=== PATIENT | male | born 1990 | race Caucasian/White ===

== ENCOUNTER 2017-08-26 09:57 | Inpatient (IN) | payer BC, OTHER ==
--- NOTE | 2017-08-26 10:19 | PDOC ---
History of Present Illness <Nikki Myles - Last Filed: 08/26/17 18:49> - General History Source: Patient Exam Limitations: No Limitations - History of Present Illness Initial Comments: 08/26/17 10:16 18-year-old male history of Crohn's in somewhat of a remission for the last year here today complaining of epigastric pain. Patient states he has had intermittent pain over the last 2 weeks. Unrelated to food denies any fevers or chills no nausea no vomiting denies any change to stool states is regular pattern is every other day no recent increased number of stools. Patient thought maybe the pain was due to his Crohn's therefore he took a Humira injection which he had in is refrigerator from the year prior. No urinary complaints no other moderating factors Patient follows up with GI name Dr. Hedrick at [facility] 08/26/17 10:52 <Gayatri Beaver - Last Filed: 08/26/17 18:54> - General Chief Complaint: Pain Stated Complaint: abdominal pain Time Seen by Provider: 08/26/17 10:00 Past History <Nikki Myles - Last Filed: 08/26/17 18:49> - Past Medical History COPD: No GI Disorders: Yes (CROHN'S) Psychiatric Problems: Yes (anxiety,depression,ADHD) - Immunization History Immunization Up to Date: Yes - Suicide/Smoking/Psychosocial Hx Smoking Status: No Smoking History: Never smoked Number of Cigarettes Smoked Daily: 0 Hx Alcohol Use: No Drug/Substance Use Hx: No Substance Use Type: None <Gayatri Beaver - Last Filed: 08/26/17 18:54> - Past Medical History Allergies/Adverse Reactions: Allergies Allergy/AdvReac Type Severity Reaction Status Date / Time No Known Allergies Allergy Verified 08/26/17 10:03 Home Medications: Ambulatory Orders Aripiprazole [Abilify] 2 mg PO DAILY 05/23/12 Sertraline HCl [Zoloft] 75 mg PO DAILY 05/23/12 Lisdexamfetamine Dimesylate [Vyvanse] 40 mg PO DAILY 08/26/17 Review of Systems - Review of Systems Constitutional: No: Chills, Diaphoresis, Fever Respiratory: No: Orthopnea, Shortness of Breath Cardiac (ROS): No: Chest Pain, Edema ABD/GI: Yes: Abdominal cramping, Other (pain) : No: Burning, Dysuria Musculoskeletal: No: Back Pain Integumentary: No: Bruising Neurological: No: Headache All Other Systems: Reviewed and Negative <Gayatri Beaver - Last Filed: 08/26/17 18:54> *Physical Exam - Vital Signs Last Vital Signs Temp Pulse Resp BP Pulse Ox 100.9 F H 116 H 16 121/82 97 08/26/17 14:33 08/26/17 14:00 08/26/17 14:00 08/26/17 14:00 08/26/17 14:00 <Nikki Myles - Last Filed: 08/26/17 18:49> - Vital Signs Last Vital Signs Temp Pulse Resp BP Pulse Ox 99.4 F 130 H 18 124/84 96 08/26/17 09:58 08/26/17 09:58 08/26/17 09:58 08/26/17 09:58 08/26/17 09:58 - Physical Exam General Appearance: Yes: Appropriately Dressed HEENT: positive: Normal ENT Inspection Neck: positive: Trachea midline Respiratory/Chest: positive: Lungs Clear, Normal Breath Sounds Cardiovascular: positive: Regular Rhythm, Regular Rate (reg tachycardia ), S1, S2, Tachycardia Gastrointestinal/Abdominal: positive: Normal Bowel Sounds, Tender (epigastric ruq, and periumbilical ttp. ) Integumentary: negative: Normal Color, Dry, Warm <Gayatri Beaver - Last Filed: 08/26/17 18:54> Heart Score/ECG Review #1 General ECG Interpretation: Sinus Rhythm, Normal Intervals, No acute ischemic changes Compared to previous ECG there are: Other (sinus tachycardia. TWI III only) <Gayatri Beaver - Last Filed: 08/26/17 18:54> ED Treatment Course - LABORATORY CBC & Chemistry Diagram: 08/26/17 10:32 08/26/17 10:32 - ADDITIONAL ORDERS Additional order review: Laboratory Results 08/26/17 08/26/17 10:54 10:32 Sodium 137 Potassium 4.1 Chloride 101 Carbon Dioxide 29 H Anion Gap 7 L BUN 11 Creatinine 0.9 Creat Clearance w eGFR > 60 Random Glucose 100 Calcium 9.0 Total Bilirubin 1.0 AST 12 ALT 22 Alkaline Phosphatase 48 Total Protein 6.7 Albumin 3.5 Urine Color [place] Urine Appearance Cloudy Urine pH 5.5 Ur Specific Kenna >= 1.030 H Urine Protein 2+ H Urine Glucose (UA) Negative Urine Ketones 1+ H Urine Blood 2+ H Urine Nitrite Negative Urine Bilirubin 2+ H Urine Urobilinogen 0.2 Ur Leukocyte Esterase Negative Urine RBC 3-5 Urine WBC 0-3 Ur Epithelial Cells Few Amorphous Urates Moderate Urine Bacteria None seen 08/26/17 10:32 RBC 5.46 MCV 72.4 L MCHC 32.4 RDW 14.0 MPV 8.6 Neutrophils % 80.2 Lymphocytes % 7.4 L Monocytes % 11.5 H Eosinophils % 0.3 Basophils % 0.6 - Medications Given in the ED: ED Medications Discontinued Medications Generic Name Dose Route Start Last Admin Trade Name Freq PRN Reason Stop Dose Admin Piperacillin Sod/Tazobactam 50 mls @ 100 mls/hr 08/26/17 13:56 08/26/17 14:30 Sod 3.375 gm/ Dextrose IVPB 08/26/17 14:25 100 mls/hr ONCE ONE Administration Protocol Sodium Chloride 1,000 mls @ 1,000 mls/hr 08/26/17 14:02 08/26/17 14:30 Normal Saline - IV 08/26/17 15:01 1,000 mls/hr ASDIR STA Administration Sodium Chloride 1,000 ml 08/26/17 10:49 08/26/17 10:50 Normal Saline - IV 08/26/17 10:50 1,000 ml ONCE ONE Administration <Nikki Myles - Last Filed: 08/26/17 18:49> - LABORATORY CBC & Chemistry Diagram: 08/26/17 10:32 08/26/17 10:32 <Gayatri Beaver - Last Filed: 08/26/17 18:54> Medical Decision Making - Medical Decision Making Consulted with Dr. Sheth at 15:[address] Condon at 15:[address] Logan 16:35. Consulted with Dr. Sheth at 16:58. Consulted with Dr. Elia Treviño at 17:13. Consulted with Dr. Mckeon at 18:35. <Nikki Myles - Last Filed: 08/26/17 18:49> - Medical Decision Making 08/26/17 10:54 18-year-old male history of Crohn's here with abdominal pain which is periumbilical right sided no nausea no vomiting different from previous Crohn's flares On exam he's got right upper and periumbilical as well as suprapubic tenderness to palpation Differential includes UTI or pyelonephritis, pericarditis cholelithiasis or cholecystitis terminal ileal stricture secondary to Crohn's, pancreatitis, colitis flare patient's vital signs are noted for tachycardia at 130 and a low- grade fever. Plan: Bedside ultrasound to evaluate for gallstones, or cholecystitis cardiac ultrasound basic labs and lipase IV fluids Tylenol and possible CT 08/26/17 18:51 focused ED ultrasound RUQ Gallbladder scanned in two planes. no wall thickening, no stones, no pericholecystic fluid. CBD was normal at 2.5 mm anterior gallbladder wall was 1.8mm no sonographic murphys impression: normal gallbladder cardiac ultrasound: indication tachycardia, crohyns r/o pericardial effusion focused ED TTE, heart scanned in four views ( parasternal long and short, apical and subxiphoid) no pericardial effusion noted. overal preserved global contractility. impression: normal cardiac echo. ct a/p with microabscesses. d/w sheth surgery. <Gayatri Beaver - Last Filed: 08/26/17 18:54> *DC/Admit/Observation/Transfer - Attestations Scribe Attestion: Documentation prepared by Nikki Myles, acting as medical technologist blood bank for Gayatri Beaver MD. <Nikki Myles - Last Filed: 08/26/17 18:49> - Discharge Dispostion Admit: Yes <Gayatri Beaver - Last Filed: 08/26/17 18:54> Diagnosis at time of Disposition: Abdominal abscess - Discharge Dispostion Condition at time of disposition: Stable - Referrals Referrals: Kev Chavez MD [Staff Physician] - ()
[2017-08-26] MEDS ORDERED: SODIUM CHLORIDE 0.9% 1000 ML INFUS.BAG IV ONE (10:49)
[2017-08-26 10:52] LABS: BASO % 0.6 % (0-2.0); EOS % 0.3 % (0-4.5); HEMATOCRIT 39.5 % (35.4-49); HEMOGLOBIN 12.8 GM/dl (11.7-16.9); LYMPH % 7.4 % (8-40); MCH 23.4 pg (25.7-33.7); MCHC 32.4 g/dl (32.0-35.9); MEAN CELL VOLUME 72.4 fl (80-96); MEAN PLT VOLUME 8.6 fl (7.5-11.1); MONO % 11.5 % (3.8-10.2); NEUT % 80.2 % (42.8-82.8); PLATELET COUNT 395 K/MM3 (134-434); RBC 5.46 M/mm3 (4.00-5.60); WHITE BLOOD COUNT 11.8 K/mm3 (4.0-10.8)
[2017-08-26 10:58] LABS: ADD RBC MORPHOLOGY YES
[2017-08-26 11:12] LABS: ALBUMIN 3.5 g/dl (3.5-5.0); ALK PHOS 48 U/L (32-92); ANION GAP 7 (8-16); BLOOD UREA NITROGEN 11 mg/dl (7-18); CHLORIDE 101 mmol/L (98-107); CO2 29 mmol/L (22-28); CREATININE 0.9 mg/dl (0.6-1.3); GLUCOSE,RANDOM 100 mg/dl (74-106); POTASSIUM 4.1 mmol/L (3.5-5.1); SGOT/AST 12 U/L (10-42); SGPT/ALT 22 U/L (10-40); SODIUM 137 mmol/L (136-145); TOT PROT 6.7 g/dl (6.4-8.3)
[2017-08-26 11:18] LABS: PH,URINE 5.5 (4.5-8); URINE BILIRUBIN 2+ (NEGATIVE); URINE GLUCOSE (UA) Negative (NEGATIVE); URINE KETONE 1+ (NEGATIVE); URINE LEUK ESTERASE Negative (NEGATIVE); URINE NITRITE Negative (NEGATIVE); URINE UROBILINOGEN 0.2 (0.2-1.0)
[2017-08-26 11:32] LABS: EPI CELLS FEW /HPF; URINE APPEARANCE CLOUDY; URINE BLOOD 2+ (NEGATIVE); URINE COLOR YELL; URINE PROTEIN 2+ (NEGATIVE); URINE WBC 0-3 (0-2)
[2017-08-26 11:33] LABS: AMORP URATES MODERATE /hpf (NONE SEEN); URINE BACTERIA NONE SEEN /hpf (NEGATIVE)
[2017-08-26 13:51] LABS: ANISOCYTOSIS 1+
[2017-08-26] MEDS ORDERED: PIPERACILLIN/TAZOB 3.375 GM 3.375 GM in DEXTROSE 5%-WATER - 50 ML IVPB ONE (13:56)
[2017-08-26] MEDS ORDERED: SODIUM CHLORIDE 1,000 ML IV STA (14:02)
[2017-08-26] MEDS ORDERED: PIPERACILLIN/TAZOBACTAM 3.375 GM VIAL IVPB ONE ×2 (14:19→19:03)
[2017-08-26] MEDS ORDERED: morphine CARPU-JECT 2 MG/1 ML DISP.SYRIN IVPUSH PRN (15:15)
[2017-08-26] MEDS ORDERED: ONDANSETRON 4 MG/2 ML VIAL IVPUSH PRN (15:18)
--- NOTE | 2017-08-26 15:30 | CON.ID ---
Consult Consult Specialty:: infectious diseases Referred by:: Rylee Reason for Consultation:: crohns flare up - History of Present Illness Chief Complaint: abd pain History of Present Illness: 26 yr old male with hx of Chron's developed fever, abdominal pain .Patient has known history of crohns since last 8 years and his last flare up was about 4 yrs back. He was on Humira years ago but no longer. He does not take any meds currently. has been admitted for flair twice.Otherwise patient mentions that he has been doing well. CT found to have Chron's inflammation in small bowel with peritoneal abscess. surgery on case - History Source History Provided By: Patient, Family Member Limitations to Obtaining History: No Limitations - Alcohol/Substance Use Hx Alcohol Use: No - Smoking History Smoking history: Never smoked Aproximately how many cigarettes per day: 0 Home Medications - Allergies Allergies/Adverse Reactions: Allergies Allergy/AdvReac Type Severity Reaction Status Date / Time No Known Allergies Allergy Verified 08/26/17 10:03 - Home Medications Home Medications: Ambulatory Orders Aripiprazole [Abilify] 2 mg PO DAILY 05/23/12 Sertraline HCl [Zoloft] 75 mg PO DAILY 05/23/12 Lisdexamfetamine Dimesylate [Vyvanse] 40 mg PO DAILY 08/26/17 Review of Systems - Review of Systems Constitutional: reports: Fever Eyes: reports: No Symptoms HENT: reports: No Symptoms Neck: reports: No Symptoms Cardiovascular: reports: No Symptoms Respiratory: reports: No Symptoms Gastrointestinal: reports: Abdominal Pain Genitourinary: reports: No Symptoms Musculoskeletal: reports: No Symptoms Integumentary: reports: No Symptoms Neurological: reports: No Symptoms Endocrine: reports: No Symptoms Hematology/Lymphatic: reports: No Symptoms Psychiatric: reports: No Symptoms Physical Exam Vital Signs: Vital Signs Temperature 100.9 F H 08/26/17 14:33 Pulse Rate 116 H 08/26/17 14:00 Respiratory Rate 16 08/26/17 14:00 Blood Pressure 121/82 08/26/17 14:00 O2 Sat by Pulse Oximetry (%) 97 08/26/17 14:00 Constitutional: Yes: Well Nourished, Calm, Mild Distress Eyes: Yes: Conjunctiva Clear Cardiovascular: Yes: Regular Rate and Rhythm Respiratory: Yes: Regular, CTA Bilaterally Gastrointestinal: Yes: Normal Bowel Sounds, Soft, Tenderness (lower quadrant bilaterally) Musculoskeletal: Yes: WNL Extremities: Yes: WNL Neurological: Yes: Alert, Oriented Psychiatric: Yes: Alert, Oriented Labs: CBC, BMP 08/26/17 10:32 08/26/17 10:32 Imaging - Results Cat Scan: Report Reviewed, Image Reviewed Assessment/Plan Problem List - Problems (1) Abdominal pain, right lower quadrant Code(s): R10.31 - RIGHT LOWER QUADRANT PAIN (2) Ileitis, terminal Code(s): K50.00 - CROHN'S DISEASE OF SMALL INTESTINE WITHOUT COMPLICATIONS (3) Abdominal visceral abscess Code(s): K65.1 - PERITONEAL ABSCESS (4) Abdominal abscess Code(s): EPI6182 - patient with reacitvation of terminal ileitis starting to feel better still with some abd pain wbc normalized plan continue abx await for gi to see the patient bowel rest surgery on board hydration rest as per the team
[2017-08-26] MEDS: SODIUM CHLORIDE 1,000 ML IV SCH (15:36)
[2017-08-26] MEDS ORDERED: ACETAMINOPHEN 1000 MG/100 ML VIAL (NON FORMULARY) IVPB ONE (16:15)
--- NOTE | 2017-08-26 16:31 | CONSULT ---
Consult Consult Specialty:: Surgery Referred by:: Saranya Reason for Consultation:: Abdominal pain , Crohn's iliitis - History of Present Illness Chief Complaint: 26 year old man with h/o Crohn's disease , in remission for the past 4 years, comes to the Er c/o sudden onset of abdominal pain on his right side this morning , while he was driving. Denies any nausea or vomiting . No h/o fever , weight loss. No diarrhea, or constipation. - History Source History Provided By: Patient Limitations to Obtaining History: No Limitations - Alcohol/Substance Use Hx Alcohol Use: No - Smoking History Smoking history: Never smoked Aproximately how many cigarettes per day: 0 Home Medications - Allergies Allergies/Adverse Reactions: Allergies Allergy/AdvReac Type Severity Reaction Status Date / Time No Known Allergies Allergy Verified 08/26/17 10:03 - Home Medications Home Medications: Ambulatory Orders Aripiprazole [Abilify] 2 mg PO DAILY 05/23/12 Sertraline HCl [Zoloft] 75 mg PO DAILY 05/23/12 Lisdexamfetamine Dimesylate [Vyvanse] 40 mg PO DAILY 08/26/17 Physical Exam Vital Signs: Vital Signs Temperature 99.4 F 08/26/17 16:09 Pulse Rate 126 H 08/26/17 16:09 Respiratory Rate 18 08/26/17 16:09 Blood Pressure 121/82 08/26/17 14:00 O2 Sat by Pulse Oximetry (%) 99 08/26/17 16:09 Gastrointestinal: Yes: Other (Minimal tenderness in right lower quadrant, no guarding , no rigidity) Labs: CBC, BMP 08/26/17 10:32 08/26/17 10:32 Imaging - Results Cat Scan: Report Reviewed, Image Reviewed (Inflammatory changes in distal ilium with small fluid collections, suggestive of ? early abscess. Consistent with Crohns disease.) Problem List - Problems (1) Abdominal pain, right lower quadrant Code(s): R10.31 - RIGHT LOWER QUADRANT PAIN (2) Ileitis, terminal Code(s): K50.00 - CROHN'S DISEASE OF SMALL INTESTINE WITHOUT COMPLICATIONS (3) Abdominal visceral abscess Code(s): K65.1 - PERITONEAL ABSCESS (4) Abdominal abscess Code(s): [id number] - Assessment/Plan Reactivation of terminal ileitis, Crohns disease. Plan : Bowel rest , Iv fluids, G.I. consultation . NPO.
[2017-08-26] MEDS ORDERED: ACETAMINOPHEN INJECTION 100 ML IVPB ONE (16:33)
[2017-08-26] MEDS: PIPERACILLIN/TAZOB 3.375 GM 3.375 GM in DEXTROSE 5%-WATER - 50 ML IVPB SCH (19:05)
[2017-08-26 19:55] LABS: LIPASE 132 U/L (73-393)
[2017-08-26] MEDS: HEPARIN NA (PORCINE) 5,000 UNITS/ML 1ML VIAL SQ SCH (21:17)
--- NOTE | 2017-08-26 21:42 | HP ---
<Karina Guerrero - Last Filed: 08/26/17 21:37> CHIEF COMPLAINT:Diffuse abdominal pain with Chron's Flair PCP: Dr. Owusu, [facility] GI: Dr. Reyes, [facility] HISTORY OF PRESENT ILLNESS: This 26 yr old male with hx of Chron's developed fever, abdominal pain over the past 12 hours. He has had Chrons and last flair up was 4 years ago. He wsa on Humira years ago but no longer. He does not take any meds currently. He has never had surgery abdominally. But he has been hospitalized 2x for Chron's flair In ER the CT found to have Chron's inflammation in small bowel with peritoneal abscess. Pt was seen by Dr. Caballero, surgery and Dr. Cornejo, ID today. ER course was notable for: (1) low grade fever (2) (3) PAST MEDICAL HISTORY: chron's PAST SURGICAL HISTORY: none Social History:denies Smoking: Alcohol: Drugs: Family History: Allergies No Known Allergies Allergy (Verified 08/26/17 10:03) HOME MEDICATIONS: Home Medications Medication Instructions Recorded Aripiprazole [Abilify] 2 mg PO DAILY 05/23/12 Sertraline HCl [Zoloft] 75 mg PO DAILY 05/23/12 Lisdexamfetamine Dimesylate 40 mg PO DAILY 08/26/17 [Vyvanse] REVIEW OF SYSTEMS CONSTITUTIONAL: Absent: fever, chills, diaphoresis, generalized weakness, malaise, loss of appetite, weight change HEENT: Absent: rhinorrhea, nasal congestion, throat pain, throat swelling, difficulty swallowing, mouth swelling, ear pain, eye pain, visual changes CARDIOVASCULAR: Absent: chest pain, syncope, palpitations, irregular heart rate, lightheadedness , peripheral edema RESPIRATORY: Absent: cough, shortness of breath, dyspnea with exertion, orthopnea, wheezing, stridor, hemoptysis GASTROINTESTINAL: Absent: +abdominal pain,+ abdominal distension, nausea, vomiting, diarrhea, constipation, melena, hematochezia, Last BM yesterday GENITOURINARY: Absent: dysuria, frequency, urgency, hesitancy, hematuria, flank pain, genital pain MUSCULOSKELETAL: Absent: myalgia, arthralgia, joint swelling, back pain, neck pain SKIN: Absent: rash, itching, pallor HEMATOLOGIC/IMMUNOLOGIC: Absent: easy bleeding, easy bruising, lymphadenopathy, frequent infections ENDOCRINE: Absent: unexplained weight gain, unexplained weight loss, heat intolerance, cold intolerance NEUROLOGIC: Absent: headache, focal weakness or paresthesias, dizziness, unsteady gait, seizure, mental status changes, bladder or bowel incontinence PSYCHIATRIC: Absent: anxiety, depression, suicidal or homicidal ideation, hallucinations. PHYSICAL EXAMINATION Vital Signs - 24 hr 08/26/17 08/26/17 08/26/17 09:58 14:00 14:33 Temperature 99.4 F 99.7 F H 100.9 F H Pulse Rate 130 H Pulse Rate [ 116 H Apical] Respiratory 18 16 Rate Blood Pressure 124/84 Blood Pressure 121/82 [Arm] O2 Sat by Pulse 96 97 Oximetry (%) 08/26/17 08/26/17 16:09 17:34 Temperature 99.4 F Pulse Rate Pulse Rate [ 126 H 106 H Apical] Respiratory 18 16 Rate Blood Pressure Blood Pressure 130/84 [Arm] O2 Sat by Pulse 99 97 Oximetry (%) GENERAL: Awake, alert, and fully oriented, in no acute distress. HEAD: Normal with no signs of trauma. EYES: Pupils equal, round and reactive to light, extraocular movements intact, sclera anicteric, conjunctiva clear. No lid lag. EARS, NOSE, THROAT: Ears normal, nares patent, oropharynx clear without exudates. Moist mucous membranes. NECK: Normal range of motion, supple without lymphadenopathy, JVD, or masses. LUNGS: Breath sounds equal, clear to auscultation bilaterally. No wheezes, and no crackles. No accessory muscle use. HEART: Regular rate and rhythm, normal S1 and S2 without murmur, rub or gallop. ABDOMEN: Soft, +tender, + distended, normoactive bowel sounds, no guarding, no rebound, no masses. No hepatomegaly or splenomegaly. MUSCULOSKELETAL: Normal range of motion at all joints. No bony deformities or tenderness. No CVA tenderness. UPPER EXTREMITIES: 2+ pulses, warm, well-perfused. No cyanosis. No clubbing. No peripheral edema. LOWER EXTREMITIES: 2+ pulses, warm, well-perfused. No calf tenderness. No peripheral edema. NEUROLOGICAL: Cranial nerves II-XII intact. Normal speech. Normal gait. PSYCHIATRIC: Cooperative. Good eye contact. Appropriate mood and affect. SKIN: Warm, dry, normal turgor, no rashes or lesions noted, normal capillary refill. Laboratory Results - last 24 hr 08/26/17 08/26/17 08/26/17 10:32 10:32 10:54 WBC 11.8 H RBC 5.46 Hgb 12.8 Hct 39.5 MCV 72.4 L MCH 23.4 L MCHC 32.4 RDW 14.0 Plt Count 395 MPV 8.6 Neutrophils % 80.2 Lymphocytes % 7.4 L Monocytes % 11.5 H Eosinophils % 0.3 Basophils % 0.6 Polychromasia 1+ Poikilocytosis 1+ Anisocytosis 1+ Microcytosis 1+ Sodium 137 Potassium 4.1 Chloride 101 Carbon Dioxide 29 H Anion Gap 7 L BUN 11 Creatinine 0.9 Creat Clearance w eGFR > 60 Random Glucose 100 Lactic Acid Calcium 9.0 Total Bilirubin 1.0 AST 12 ALT 22 Alkaline Phosphatase 48 Total Protein 6.7 Albumin 3.5 Lipase 132 Urine Color [place] Urine Appearance Cloudy Urine pH 5.5 Ur Specific [place] >= 1.030 H Urine Protein 2+ H Urine Glucose (UA) Negative Urine Ketones 1+ H Urine Blood 2+ H Urine Nitrite Negative Urine Bilirubin 2+ H Urine Urobilinogen 0.2 Ur Leukocyte Esterase Negative Urine RBC 3-5 Urine WBC 0-3 Ur Epithelial Cells Few Amorphous Urates Moderate Urine Bacteria None seen 08/26/17 14:16 WBC RBC Hgb Hct MCV MCH MCHC RDW Plt Count MPV Neutrophils % Lymphocytes % Monocytes % Eosinophils % Basophils % Polychromasia Poikilocytosis Anisocytosis Microcytosis Sodium Potassium Chloride Carbon Dioxide Anion Gap BUN Creatinine Creat Clearance w eGFR Random Glucose Lactic Acid 0.8 Calcium Total Bilirubin AST ALT Alkaline Phosphatase Total Protein Albumin Lipase Urine Color Urine Appearance Urine pH Ur Specific [place] Urine Protein Urine Glucose (UA) Urine Ketones Urine Blood Urine Nitrite Urine Bilirubin Urine Urobilinogen Ur Leukocyte Esterase Urine RBC Urine WBC Ur Epithelial Cells Amorphous Urates Urine Bacteria ASSESSMENT/PLAN: This 26 yr old male with Chrons flair and noted abscess on CT admitted for IV ABT and IV hydration with Surgical, ID, GI consult Problem List - Problem (1) Acute Crohn's disease with abscess Assessment/Plan: -reviewed CT -Surgical consult -ID consult -antibiotics on board -tylenol for fever -NPO -GI consult -pain meds -IV hydration Code(s): K50.914 - CROHN'S DISEASE, UNSPECIFIED, WITH ABSCESS (2) Abdominal abscess Code(s): [id number] - Visit type - Emergency Visit Emergency Visit: Yes ED Registration Date: 08/26/17 Care time: The patient presented to the Emergency Department on the above date and was hospitalized for further evaluation of their emergent condition. - New Patient This patient is new to me today: Yes Date on this admission: 08/26/17 - Critical Care Critical Care patient: No Hospitalist Screening - Colonoscopy Questionnaire Colonoscopy Questionnaire: Colonoscopy Questionnaire - Patient: 50 - 75 years old and never had a screening colonoscopy: Unknown History of colon or rectal polyps, or CA: Unknown History of IBD, Crohn's disease or UC: Unknown History of abdominal radiation therapy as a child: Unknown - Relative: 1 with colon or rectal CA, or polyps at age 60 or younger: Unknown Colon or rectal CA diagnosed at age 45 or younger: Unknown Multiple relatives with colon or rectal CA: Unknown - Outcome: Screening Result: Negative Screen <Claribel Knott - Last Filed: 08/27/17 14:28> CHIEF COMPLAINT: PCP: HISTORY OF PRESENT ILLNESS: ER course was notable for: (1) (2) (3) Recent Travel: PAST MEDICAL HISTORY: PAST SURGICAL HISTORY: Social History: Smoking: Alcohol: Drugs: Family History: Allergies No Known Allergies Allergy (Verified 08/26/17 10:03) HOME MEDICATIONS: Home Medications Medication Instructions Recorded Aripiprazole [Abilify] 2 mg PO DAILY 05/23/12 Sertraline HCl [Zoloft] 75 mg PO DAILY 05/23/12 Lisdexamfetamine Dimesylate 40 mg PO DAILY 08/26/17 [Vyvanse] REVIEW OF SYSTEMS CONSTITUTIONAL: Absent: fever, chills, diaphoresis, generalized weakness, malaise, loss of appetite, weight change HEENT: Absent: rhinorrhea, nasal congestion, throat pain, throat swelling, difficulty swallowing, mouth swelling, ear pain, eye pain, visual changes CARDIOVASCULAR: Absent: chest pain, syncope, palpitations, irregular heart rate, lightheadedness , peripheral edema RESPIRATORY: Absent: cough, shortness of breath, dyspnea with exertion, orthopnea, wheezing, stridor, hemoptysis GASTROINTESTINAL: Absent: abdominal pain, abdominal distension, nausea, vomiting, diarrhea, constipation, melena, hematochezia GENITOURINARY: Absent: dysuria, frequency, urgency, hesitancy, hematuria, flank pain, genital pain MUSCULOSKELETAL: Absent: myalgia, arthralgia, joint swelling, back pain, neck pain SKIN: Absent: rash, itching, pallor HEMATOLOGIC/IMMUNOLOGIC: Absent: easy bleeding, easy bruising, lymphadenopathy, frequent infections ENDOCRINE: Absent: unexplained weight gain, unexplained weight loss, heat intolerance, cold intolerance NEUROLOGIC: Absent: headache, focal weakness or paresthesias, dizziness, unsteady gait, seizure, mental status changes, bladder or bowel incontinence PSYCHIATRIC: Absent: anxiety, depression, suicidal or homicidal ideation, hallucinations. PHYSICAL EXAMINATION Vital Signs - 24 hr 08/26/17 08/26/17 08/26/17 14:33 16:09 17:34 Temperature 100.9 F H 99.4 F Pulse Rate Pulse Rate [ 126 H 106 H Apical] Respiratory 18 16 Rate Blood Pressure Blood Pressure 130/84 [Arm] O2 Sat by Pulse 99 97 Oximetry (%) 08/26/17 08/26/17 08/26/17 20:31 21:00 22:00 Temperature 97.7 F Pulse Rate 92 H Pulse Rate [ Apical] Respiratory 18 18 18 Rate Blood Pressure 119/69 Blood Pressure [Arm] O2 Sat by Pulse 94 L 94 L 94 L Oximetry (%) 08/27/17 08/27/17 08/27/17 06:28 09:00 14:13 Temperature 98.7 F 98.5 F Pulse Rate 88 90 Pulse Rate [ Apical] Respiratory 19 19 18 Rate Blood Pressure 121/63 121/70 Blood Pressure [Arm] O2 Sat by Pulse 95 95 95 Oximetry (%) GENERAL: Awake, alert, and fully oriented, in no acute distress. HEAD: Normal with no signs of trauma. EYES: Pupils equal, round and reactive to light, extraocular movements intact, sclera anicteric, conjunctiva clear. No lid lag. EARS, NOSE, THROAT: Ears normal, nares patent, oropharynx clear without exudates. Moist mucous membranes. NECK: Normal range of motion, supple without lymphadenopathy, JVD, or masses. LUNGS: Breath sounds equal, clear to auscultation bilaterally. No wheezes, and no crackles. No accessory muscle use. HEART: Regular rate and rhythm, normal S1 and S2 without murmur, rub or gallop. ABDOMEN: Soft, nontender, not distended, normoactive bowel sounds, no guarding, no rebound, no masses. No hepatomegaly or splenomegaly. MUSCULOSKELETAL: Normal range of motion at all joints. No bony deformities or tenderness. No CVA tenderness. UPPER EXTREMITIES: 2+ pulses, warm, well-perfused. No cyanosis. No clubbing. No peripheral edema. LOWER EXTREMITIES: 2+ pulses, warm, well-perfused. No calf tenderness. No peripheral edema. NEUROLOGICAL: Cranial nerves II-XII intact. Normal speech. Normal gait. PSYCHIATRIC: Cooperative. Good eye contact. Appropriate mood and affect. SKIN: Warm, dry, normal turgor, no rashes or lesions noted, normal capillary refill. Laboratory Results - last 24 hr 08/26/17 08/26/17 08/27/17 10:32 14:16 08:01 WBC 6.9 D RBC 5.00 Hgb 12.1 Hct 36.0 MCV 72.1 L MCH 24.1 L MCHC 33.5 RDW 14.0 Plt Count 351 MPV 8.6 Neutrophils % 68.5 Lymphocytes % 14.7 D Monocytes % 13.6 H Eosinophils % 2.5 D Basophils % 0.7 Sodium Potassium Chloride Carbon Dioxide Anion Gap BUN Creatinine Creat Clearance w eGFR Random Glucose Lactic Acid 0.8 Calcium Phosphorus Magnesium Total Bilirubin AST ALT Alkaline Phosphatase Total Protein Albumin Lipase 132 08/27/17 08:01 WBC RBC Hgb Hct MCV MCH MCHC RDW Plt Count MPV Neutrophils % Lymphocytes % Monocytes % Eosinophils % Basophils % Sodium 137 Potassium 3.9 Chloride 101 Carbon Dioxide 28 Anion Gap 8 BUN 6 L D Creatinine 0.8 Creat Clearance w eGFR > 60 Random Glucose 83 Lactic Acid Calcium 8.4 Phosphorus 3.4 Magnesium 1.8 Total Bilirubin 1.1 H AST 9 L D ALT 17 D Alkaline Phosphatase 40 Total Protein 5.7 L Albumin 2.9 L Lipase ASSESSMENT/PLAN: Hospitalist Screening - Colonoscopy Questionnaire Colonoscopy Questionnaire: Colonoscopy Questionnaire
[2017-08-26 23:46] VITALS: BMI 27.8
[2017-08-27] MEDS: PIPERACILLIN/TAZOB 3.375 GM 3.375 GM in DEXTROSE 5%-WATER - 50 ML IVPB SCH (02:00)
[2017-08-27] MEDS: HEPARIN NA (PORCINE) 5,000 UNITS/ML 1ML VIAL SQ SCH ×3 (05:17→21:47)
[2017-08-27 08:55] LABS: BASO % 0.7 % (0-2.0); EOS % 2.5 % (0-4.5); HEMOGLOBIN 12.1 GM/dl (11.7-16.9); LYMPH % 14.7 % (8-40); MCH 24.1 pg (25.7-33.7); MCHC 33.5 g/dl (32.0-35.9); MEAN CELL VOLUME 72.1 fl (80-96); MEAN PLT VOLUME 8.6 fl (7.5-11.1); MONO % 13.6 % (3.8-10.2); NEUT % 68.5 % (42.8-82.8); PLATELET COUNT 351 K/MM3 (134-434); WHITE BLOOD COUNT 6.9 K/mm3 (4.0-10.8)
[2017-08-27 09:05] LABS: ALBUMIN 2.9 g/dl (3.5-5.0); ALK PHOS 40 U/L (32-92); ANION GAP 8 (8-16); BILIRUBIN,TOTAL 1.1 mg/dl (0.2-1.0); BLOOD UREA NITROGEN 6 mg/dl (7-18); CALCIUM 8.4 mg/dl (8.4-10.2); CHLORIDE 101 mmol/L (98-107); CO2 28 mmol/L (22-28); CREATININE 0.8 mg/dl (0.6-1.3); GLUCOSE,RANDOM 83 mg/dl (74-106); MAGNESIUM 1.8 mg/dL (1.8-2.4); PHOSPHOROUS 3.4 mg/dl (2.5-4.6); POTASSIUM 3.9 mmol/L (3.5-5.1); SGOT/AST 9 U/L (10-42); SGPT/ALT 17 U/L (10-40); SODIUM 137 mmol/L (136-145); TOT PROT 5.7 g/dl (6.4-8.3)
[2017-08-27] MEDS ORDERED: PT OWN MED DRAWER 7, Y5N ONE (09:41)
[2017-08-27] MEDS: ARIPiprazole 2 MG TABLET PO SCH (09:55)
[2017-08-27] MEDS: SERTRALINE HCL 50 MG TABLET (FP) PO SCH (09:55)
[2017-08-27] MEDS: PIPERACILLIN/TAZOB 3.375 GM 3.375 GM/50 ML BAG IVPB SCH ×2 (09:55→17:06)
--- NOTE | 2017-08-27 10:02 | EKG ---
Test Reason : Blood Pressure : / mmHG Vent. Rate : 106 BPM Atrial Rate : 106 BPM P-R Int : 180 ms QRS Dur : 080 ms QT Int : 338 ms P-R-T Axes : 048 072 015 degrees QTc Int : 448 ms SINUS TACHYCARDIA NONSPECIFIC ST ABNORMALITY NO PREVIOUS ECGS AVAILABLE Confirmed by CARL COLLAZO MD ([id number]) on 08/27/2017 10:02:29 AM Referred By: NATI KELLER Confirmed By:CARL COLLAZO MD
--- NOTE | 2017-08-27 10:53 | PN ---
Progress Note, Physician - Current Medication List Current Medications: Active Medications Acetaminophen (Ofirmev Injection -) 1,000 mg IVPB Q6H PRN PRN Reason: FEVER Aripiprazole (Abilify) 2 mg PO DAILY [facility] Last Admin: 08/27/17 09:55 Dose: 2 mg Heparin Sodium (Porcine) (Heparin -) 5,000 unit SQ TID [facility] Last Admin: 08/27/17 05:17 Dose: 5,000 unit Sodium Chloride (Normal Saline -) 1,000 mls @ 83 mls/hr IV ASDIR [facility] Last Admin: 08/26/17 15:36 Dose: 83 mls/hr Piperacillin Sod/Tazobactam Sod (Zosyn 3.375gm Ivpb (Pre-Docked)) 3.375 gm in 50 mls @ 100 mls/hr IVPB Q8H-IV MAAME PRN Reason: Protocol Last Admin: 08/27/17 09:55 Dose: 100 mls/hr Morphine Sulfate (Morphine Injection -) 1 mg IVPUSH Q4H PRN PRN Reason: PAIN LEVEL 1-5 Ondansetron HCl (Zofran Injection) 4 mg IVPUSH Q6H PRN PRN Reason: NAUSEA Sertraline HCl (Zoloft -) 75 mg PO DAILY [facility] Last Admin: 08/27/17 09:55 Dose: 75 mg - Objective Vital Signs: Vital Signs Temperature 98.7 F 08/27/17 06:28 Pulse Rate 88 08/27/17 06:28 Respiratory Rate 19 08/27/17 06:28 Blood Pressure 121/63 08/27/17 06:28 O2 Sat by Pulse Oximetry (%) 95 08/27/17 06:28 Constitutional: Yes: Well Nourished, No Distress Gastrointestinal: Yes: Other (has less pain as compared to yesterday. Denies nausea, vomiting.) Labs: CBC, BMP 08/27/17 08:01 08/27/17 08:01 Problem List - Problems (1) Abdominal pain, right lower quadrant Code(s): R10.31 - RIGHT LOWER QUADRANT PAIN (2) Ileitis, terminal Code(s): K50.00 - CROHN'S DISEASE OF SMALL INTESTINE WITHOUT COMPLICATIONS (3) Abdominal visceral abscess Code(s): K65.1 - PERITONEAL ABSCESS (4) Abdominal abscess Code(s): UEW3385 - Assessment/Plan Feels better Abdomen is soft , some fullness felt medial to umbilicus with minimal tenderness. No rebound. Improving . G.I consultation is pending. Active Crohn's ileitis. Medical management.
--- NOTE | 2017-08-27 13:47 | CON.GI ---
Consult Consult Specialty:: GI - History of Present Illness Chief Complaint: Abdominal pain History of Present Illness: Mr. Koo is a 26 year old man with a past medical history of Crohns disease dx 8 years ago , last humira infusion 2.5 years ago who presents to the hospital with a one day history of periumbilical abdominal pain. He states he has not had similar symptoms in the past. He has not been on any other medications for IBD. He denies fever, chills, nausea, vomiting, diarrhea, constipation or blood in the stool. He states he is feeling better today. Last colonoscopy over two years ago. He is followed by an outside GI doctor. - History Source History Provided By: Patient Limitations to Obtaining History: No Limitations - Past Medical History IT OPERATIONS SPECIALIST: No: Alzheimer's, CVA, Dementia, Migraine, Multiple Sclerosis, Peripheral Neuropathy, Parkinson's, Seizure, Syncope, TIA, Vertigo, Other Cardio/Vascular: No: AFIB, Aneurysm, Aortic Insufficiency, Aortic Stenosis, CAD , CHF, Deep Vein Thrombosis, HTN, Hyperlipdemia, NM, Mitral Insufficiency, Mitral Stenosis, Murmur, Pulmonary Hypertension, Other Pulmonary: No: Asthma, Bronchitis, Cancer, COPD, O2 Dependent, Pneumonia, Previously Intubated, Pulmonary Embolus, Pulmonary Fibrosis, Sleep Apnea, Other Gastrointestinal: Yes: Inflamatory Bowel Disease Hepatobiliary: No: Cirrhosis, Cholelithiasis, Cholecystitis, Choledocholithiasis , Hepatitis A, Hepatitis B, Hepatitis C, Other Renal/: No: Renal Failure, Renal Inusuff, BPH, Cancer, Hematuria, Hemodialysis , Neurogenic Bladder, Renal Calculi, UTI, Other Heme/Onc: No: Anemia, B12 Deficiency, Bleeding Disorder, Cancer, Current Chemotherapy, Current Radiation Therapy, Hemochromatosis, Hypercoaguable State, Myeloproliferative Synd, Sickle Cell Disease, Sickle Cell Trait, Thrombocytopenia, Other Infectious Disease: No: AIDS, C-Diff, Herpes Zoster, HIV, MRSA, STD's, Tuberculosis, VREF, Other Psych: No: Addictions, Anxiety, Bipolar, Depression, Panic, Psychosis, Schizophrenia, Other Musculoskeletal: No: Bursitis, Chronic low back pain, Hemiparesis, Hemiplegia, Osteoarthritis, Paraplegia, Other Rheumatology: No: Fibromyalgia, Gout, Lupus, Rheumatoid Arthritis, Sarcoidosis, Vasculitis, Other ENT: No: Allergic Rhinitis, Sinusitis, Other Endocrine: No: [place]'s Disease, [place]'s Disease, Diabetes Insipidus, Diabetes Mellitus, Hyperparathyroidism, Hyperthyroidism, Hypothyroidism, Osteopenia, SIADH, Other Dermatology: No: Basal Cell, Cellulitis, Eczema, Melanoma, Psoriasis, Squamous Cell, Other - Past Surgical History Past Surgical History: Yes: None - Alcohol/Substance Use Hx Alcohol Use: No - Smoking History Smoking history: Never smoked Aproximately how many cigarettes per day: 0 - Social History Usual Living Arrangement: With Parent History of Recent Travel: No Home Medications - Allergies Allergies/Adverse Reactions: Allergies Allergy/AdvReac Type Severity Reaction Status Date / Time No Known Allergies Allergy Verified 08/26/17 10:03 - Home Medications Home Medications: Ambulatory Orders Aripiprazole [Abilify] 2 mg PO DAILY 05/23/12 Sertraline HCl [Zoloft] 75 mg PO DAILY 05/23/12 Lisdexamfetamine Dimesylate [Vyvanse] 40 mg PO DAILY 08/26/17 Family Disease History - Family Disease History Family History: Denies Review of Systems - Review of Systems Constitutional: reports: Weakness Eyes: denies: No Symptoms, Blind Spots, Blurred Vision, Double Vision, Eye Pain , Floaters, Photophobia, Recent Change in Vision, Other HENT: denies: No Symptoms, Difficult Swallowing, Ear Discharge, Ear Pain, Epistaxis, Gingival Bleeding, Hearing Loss, Mouth Swelling, Nasal Congestion, Ocular Prosthesis, Throat Pain, Toothache, Ringing in Ears, Other Neck: denies: No Symptoms, Decreased ROM, Lumps, Pain on Movement, Stiffness, Swollen Glands, Tenderness, Other Cardiovascular: denies: No Symptoms, Chest Pain, Edema, Palpitations, Shortness of Breath, Other Respiratory: denies: No Symptoms, Cough, Exercise Intolerance, Hemoptysis, Orthopnea, PND, Snoring, SOB, SOB on Exertion, Wheezing, Other Gastrointestinal: reports: Abdominal Pain Genitourinary: denies: No Symptoms, Burning, Discharge, Dysuria, Flank Pain, Frequency, Hematuria, Incontinence, Lesions, Menses, Pain, Testicular Mass, Testicular Pain, Testicular Swelling, Urgency, Vaginal Bleeding, Other Breasts: denies: No Symptoms Reported, See HPI, Breast Implants, Discharge from Nipple, Lumps, Pain, Skin Changes, Other Musculoskeletal: denies: No Symptoms, Back Pain, Crepitus, Decreased ROM, Extremity Pain, Joint Pain, Joint Swelling, Muscle Pain, Muscle Cramps, Muscle Weakness, Other Integumentary: denies: No Symptoms, Blister, Bruising, Change in Color, Eczema, Erythema, Incision, Lesions, Lump, Pallor, Pruritis, Rash, Wound, Other Neurological: denies: No Symptoms, Change in LOC, Change in Speech, Confusion, Dizziness, Headache, Incoordination, Numbness, Parasthesia, Pre-Existing Deficit , Seizure, Syncope, Tremors, Unsteady Gait, Weakness, Other Endocrine: denies: No Symptoms, Excessive Sweating, Flushing, Increased Hunger, Increased Thirst, Intolerance to Cold, Intolerance to Heat, Unexplained Weight Gain, Unexplained Weight Loss, Other Hematology/Lymphatic: denies: No Symptoms, Easily Bruised, Excessive Bleeding, Swollen Glands, Other Psychiatric: denies: No Symptoms, Altered Sleep Pattern, Anxiety, Depression, Hallucinations, Panic, Paranoia, Suicidal, Other Physical Exam-GI Vital Signs: Vital Signs Temperature 98.7 F 08/27/17 06:28 Pulse Rate 88 08/27/17 06:28 Respiratory Rate 19 08/27/17 09:00 Blood Pressure 121/63 08/27/17 06:28 O2 Sat by Pulse Oximetry (%) 95 08/27/17 09:00 Constitutional: Yes: Well Nourished, No Distress Eyes: Yes: WNL HENT: Yes: WNL Neck: Yes: WNL Cardiovascular: Yes: WNL Respiratory: Yes: WNL ...Auscultate: Yes: Normoactive Bowel Sounds ...Palpate: Yes: Other (soft nontender , nml bs) Musculoskeletal: No: WNL, Back Pain, Joint Stiffness, Joint Swelling, Muscle Pain, Muscle Weakness, Other Extremities: No: WNL, Amputation, Calf Tenderness, Cold, Cool, Cyanosis, Deformity, Delayed Capillary Refill, Erythema, External Rotation, Internal Rotation, Pallor, Shortened, Other Edema: No Labs: CBC, BMP 08/27/17 08:01 08/27/17 08:01 Imaging - Results Cat Scan: Report Reviewed, Image Reviewed, Other (CT scan with inflammation small bowel / ileum with concern of abscess) Problem List - Problems (1) Acute Crohn's disease with abscess Assessment/Plan: Impression: Abdominal pain with imaging findings consistent with ileal inflammation / concern of abscess formation these findings are most consistent with crohns flare however, other infectious process can not be excluded at this time. REC: - c/w abx - levaquin/ flagyl - monitor abdominal exam - advance to clear liquid and as tolerated to a low residue lactose free diet - quantiferon / esr/ crp - no role for steriods - will need outpt endoscopic evaluation once the acute process resolves. - surgery f/u Code(s): K50.914 - CROHN'S DISEASE, UNSPECIFIED, WITH ABSCESS
[2017-08-27] MEDS: ACETAMINOPHEN 1000 MG/100 ML VIAL (NON FORMULARY) IVPB PRN (14:05)
--- NOTE | 2017-08-27 14:07 | PN ---
Physical Exam: SUBJECTIVE: Patient seen and examined, reports abdominal pain has decreased denies any tactile fever OBJECTIVE: Patient is a 26 y/o male with a past medical history of crohn disease , patient was admitted from the emergency department for emergent condition. Vital Signs Period Temp Pulse Resp BP Sys/Joiner Pulse Ox Last 24 Hr 97.7 F-100.9 F 88-126 16-19 119-130/63-84 94-99 GENERAL: The patient is awake, alert, and fully oriented, in no acute distress. HEAD: Normal with no signs of trauma. EYES: PERRL, extraocular movements intact, sclera anicteric, conjunctiva clear. No ptosis. ENT: Ears normal, nares patent, oropharynx clear without exudates, moist mucous membranes. NECK: Trachea midline, full range of motion, supple. LUNGS: Breath sounds equal, clear to auscultation bilaterally, no wheezes, no crackles, no accessory muscle use. HEART: Regular rate and rhythm, S1, S2 without murmur, rub or gallop. ABDOMEN: Soft, diffuse abdominal tenderness, nondistended, normoactive bowel sounds, no guarding, no rebound, no hepatosplenomegaly, no masses. EXTREMITIES: 2+ pulses, warm, well-perfused, no edema. NEUROLOGICAL: Cranial nerves II through XII grossly intact. Normal speech, gait not observed. PSYCH: Normal mood, normal affect. SKIN: Warm, dry, normal turgor, no rashes or lesions noted Laboratory Results - last 24 hr 08/26/17 08/26/17 08/27/17 10:32 14:16 08:01 WBC 6.9 D RBC 5.00 Hgb 12.1 Hct 36.0 MCV 72.1 L MCH 24.1 L MCHC 33.5 RDW 14.0 Plt Count 351 MPV 8.6 Neutrophils % 68.5 Lymphocytes % 14.7 D Monocytes % 13.6 H Eosinophils % 2.5 D Basophils % 0.7 Sodium Potassium Chloride Carbon Dioxide Anion Gap BUN Creatinine Creat Clearance w eGFR Random Glucose Lactic Acid 0.8 Calcium Phosphorus Magnesium Total Bilirubin AST ALT Alkaline Phosphatase Total Protein Albumin Lipase 132 08/27/17 08:01 WBC RBC Hgb Hct MCV MCH MCHC RDW Plt Count MPV Neutrophils % Lymphocytes % Monocytes % Eosinophils % Basophils % Sodium 137 Potassium 3.9 Chloride 101 Carbon Dioxide 28 Anion Gap 8 BUN 6 L D Creatinine 0.8 Creat Clearance w eGFR > 60 Random Glucose 83 Lactic Acid Calcium 8.4 Phosphorus 3.4 Magnesium 1.8 Total Bilirubin 1.1 H AST 9 L D ALT 17 D Alkaline Phosphatase 40 Total Protein 5.7 L Albumin 2.9 L Lipase Active Medications Generic Name Dose Route Start Last Admin Trade Name Freq PRN Reason Stop Dose Admin Acetaminophen 1,000 mg 08/26/17 21:44 08/27/17 14:05 Ofirmev Injection - IVPB 1,000 mg Q6H PRN Administration FEVER Aripiprazole 2 mg 08/27/17 10:00 08/27/17 09:55 Abilify PO 2 mg DAILY MAAME Administration Heparin Sodium (Porcine) 5,000 unit 08/26/17 22:00 08/27/17 14:04 Heparin - SQ 5,000 unit TID MAAME Administration Sodium Chloride 1,000 mls @ 83 mls/hr 08/26/17 15:15 08/26/17 15:36 Normal Saline - IV 83 mls/hr ASDIR MAAME Administration Piperacillin Sod/Tazobactam Sod 3.375 gm in 50 mls @ 100 mls/hr 08/27/17 10: 00 08/27/17 09:55 Zosyn 3.375gm Ivpb (Pre-Docked) IVPB 100 mls/hr Q8H-IV MAAME Administration Protocol Morphine Sulfate 1 mg 08/26/17 15:15 Morphine Injection - IVPUSH Q4H PRN PAIN LEVEL 1-5 Ondansetron HCl 4 mg 08/26/17 15:18 Zofran Injection IVPUSH Q6H PRN NAUSEA Sertraline HCl 75 mg 08/27/17 10:00 08/27/17 09:55 Zoloft - PO 75 mg DAILY MAAME Administration IMAGING CT sxan of abd: inflammatory changes of bowel loops with developing abscess ASSESSMENT/PLAN: 1 chron's excerbation with abscess - continue zosyn, no leukocytosis patient is afebrile - start clear liquid diet will advance as tolerated - Dr Mckeon, GI consulted and following - Dr Caballero, surgery consulted and following 2) psych deprssion - continue home dose zoloft and abilify f/e/n - clear liquid and advance as tolerated - replete lyes prn - ivf ppx - heparin - oob - pepcid dispo: pt requires inpatient admission Visit type - Emergency Visit Emergency Visit: Yes ED Registration Date: 08/26/17 Care time: The patient presented to the Emergency Department on the above date and was hospitalized for further evaluation of their emergent condition. - New Patient This patient is new to me today: No - Critical Care Critical Care patient: No - Discharge Referral Referred to [facility] Med P.C.: No
[2017-08-27] MEDS: SODIUM CHLORIDE 1,000 ML IV SCH (17:06)
[2017-08-28] MEDS: PIPERACILLIN/TAZOB 3.375 GM 3.375 GM/50 ML BAG IVPB SCH ×3 (01:22→18:17)
[2017-08-28] MEDS: ACETAMINOPHEN 1000 MG/100 ML VIAL (NON FORMULARY) IVPB PRN ×2 (03:25→15:30)
[2017-08-28] MEDS: HEPARIN NA (PORCINE) 5,000 UNITS/ML 1ML VIAL SQ SCH ×3 (06:19→21:02)
[2017-08-28 08:06] LABS: BASO % 0.9 % (0-2.0); EOS % 5.7 % (0-4.5); HEMATOCRIT 37.2 % (35.4-49); HEMOGLOBIN 12.2 GM/dl (11.7-16.9); LYMPH % 19.7 % (8-40); MCH 23.7 pg (25.7-33.7); MCHC 32.7 g/dl (32.0-35.9); MEAN CELL VOLUME 72.5 fl (80-96); MEAN PLT VOLUME 8.2 fl (7.5-11.1); MONO % 10.6 % (3.8-10.2); NEUT % 63.1 % (42.8-82.8); PLATELET COUNT 355 K/MM3 (134-434); RBC 5.14 M/mm3 (4.00-5.60); RDW 14.2 % (11.9-15.9); WHITE BLOOD COUNT 5.3 K/mm3 (4.0-10.8)
[2017-08-28 08:19] LABS: ALBUMIN 2.9 g/dl (3.5-5.0); ALK PHOS 38 U/L (32-92); ANION GAP 8 (8-16); CALCIUM 8.6 mg/dl (8.4-10.2); CHLORIDE 100 mmol/L (98-107); CO2 30 mmol/L (22-28); CREATININE 0.8 mg/dl (0.6-1.3); GLUCOSE,RANDOM 86 mg/dl (74-106); MAGNESIUM 2.1 mg/dL (1.8-2.4); PHOSPHOROUS 3.5 mg/dl (2.5-4.6); POTASSIUM 4.2 mmol/L (3.5-5.1); SGOT/AST 9 U/L (10-42); SGPT/ALT 16 U/L (10-40); SODIUM 138 mmol/L (136-145); TOT PROT 5.9 g/dl (6.4-8.3)
[2017-08-28 08:55] LABS: BLOOD UREA NITROGEN < 6 mg/dl (7-18)
[2017-08-28] MEDS ORDERED: PT OWN MED DRAWER 7, Y5N ONE (09:55)
[2017-08-28] MEDS: SERTRALINE HCL 50 MG TABLET (FP) PO SCH (09:58)
[2017-08-28] MEDS: ARIPiprazole 2 MG TABLET PO SCH (09:58)
--- NOTE | 2017-08-28 11:11 | PN ---
Progress Note, Physician History of Present Illness: Pt seen and examined. Events reviewed. Pt now on clear liquids. States he has less abdominal pain than yesterday. Currently afebrile. No other specific complaints. - Current Medication List Current Medications: Active Medications Acetaminophen (Ofirmev Injection -) 1,000 mg IVPB Q6H PRN PRN Reason: FEVER Last Admin: 08/28/17 03:25 Dose: 1,000 mg Aripiprazole (Abilify) 2 mg PO DAILY [facility] Last Admin: 08/28/17 09:58 Dose: 2 mg Heparin Sodium (Porcine) (Heparin -) 5,000 unit SQ TID [facility] Last Admin: 08/28/17 06:19 Dose: 5,000 unit Sodium Chloride (Normal Saline -) 1,000 mls @ 83 mls/hr IV ASDIR [facility] Last Admin: 08/27/17 17:06 Dose: 83 mls/hr Piperacillin Sod/Tazobactam Sod (Zosyn 3.375gm Ivpb (Pre-Docked)) 3.375 gm in 50 mls @ 100 mls/hr IVPB Q8H-IV MAAME PRN Reason: Protocol Last Admin: 08/28/17 09:57 Dose: 100 mls/hr Morphine Sulfate (Morphine Injection -) 1 mg IVPUSH Q4H PRN PRN Reason: PAIN LEVEL 1-5 Ondansetron HCl (Zofran Injection) 4 mg IVPUSH Q6H PRN PRN Reason: NAUSEA Sertraline HCl (Zoloft -) 75 mg PO DAILY [facility] Last Admin: 08/28/17 09:58 Dose: 75 mg - Objective Vital Signs: Vital Signs Temperature 97.9 F 08/28/17 07:01 Pulse Rate 70 08/28/17 07:01 Respiratory Rate 18 08/28/17 07:01 Blood Pressure 122/73 08/28/17 07:01 O2 Sat by Pulse Oximetry (%) 95 08/28/17 07:01 Constitutional: Yes: No Distress, Calm Neck: Yes: Supple Cardiovascular: Yes: Regular Rate and Rhythm Respiratory: Yes: Regular Gastrointestinal: Yes: Normal Bowel Sounds, Soft, Tenderness (mild) Genitourinary: Yes: WNL Musculoskeletal: Yes: WNL Extremities: Yes: WNL Edema: No Integumentary: Yes: WNL Neurological: Yes: Alert, Oriented Labs: CBC, BMP 04/28/18 07:38 08/28/17 07:38 - ....Imaging Cat Scan: Report Reviewed Problem List - Problems (1) Acute Crohn's disease with abscess Code(s): K50.914 - CROHN'S DISEASE, UNSPECIFIED, WITH ABSCESS (2) Ileitis, terminal Code(s): K50.00 - CROHN'S DISEASE OF SMALL INTESTINE WITHOUT COMPLICATIONS Assessment/Plan 26 y.o. male with hx of Crohn's disease presenting with abdominal pain, fever, mild leukocytosis Terminal ilietis with abscess Leukocytosis, Fever resolved Continue antibiotics GI following, surgery consult requested continue monitor
--- NOTE | 2017-08-28 11:47 | PN ---
Physical Exam: SUBJECTIVE: Patient seen and examined at bedside. Father, who is physician oncologist, present. Patient feels much better. Eager to advance diet. OBJECTIVE: Vital Signs Period Temp Pulse Resp BP Sys/Joiner Pulse Ox Last 24 Hr 97.9 F-98.5 F 70-90 17-18 109-122/66-73 95-95 GENERAL: The patient is awake, alert, and fully oriented, in no acute distress. LUNGS: Breath sounds equal, clear to auscultation bilaterally, no wheezes, no crackles, no accessory muscle use. HEART: Regular rate and rhythm, S1, S2 without murmur, rub or gallop. ABDOMEN: Soft, mild tenderness RUQ and RMQ, hypoactive bowel sounds EXTREMITIES: 2+ pulses, warm, well-perfused, no edema. NEUROLOGICAL: Cranial nerves II through XII grossly intact. Normal speech, gait not observed. PSYCH: Normal mood, normal affect. SKIN: Warm, dry, normal turgor Laboratory Results - last 24 hr 08/28/17 08/28/17 07:38 07:38 WBC 5.3 RBC 5.14 Hgb 12.2 Hct 37.2 MCV 72.5 L MCH 23.7 L MCHC 32.7 RDW 14.2 Plt Count 355 MPV 8.2 Neutrophils % 63.1 Lymphocytes % 19.7 D Monocytes % 10.6 H Eosinophils % 5.7 H D Basophils % 0.9 Sodium 138 Potassium 4.2 Chloride 100 Carbon Dioxide 30 H Anion Gap 8 BUN < 6 L Creatinine 0.8 Creat Clearance w eGFR > 60 Random Glucose 86 Calcium 8.6 Phosphorus 3.5 Magnesium 2.1 Total Bilirubin 1.0 AST 9 L ALT 16 Alkaline Phosphatase 38 Total Protein 5.9 L Albumin 2.9 L Active Medications Generic Name Dose Route Start Last Admin Trade Name Freq PRN Reason Stop Dose Admin Acetaminophen 1,000 mg 08/26/17 21:44 08/28/17 03:25 Ofirmev Injection - IVPB 1,000 mg Q6H PRN Administration FEVER Aripiprazole 2 mg 08/27/17 10:00 08/28/17 09:58 Abilify PO 2 mg DAILY MAAME Administration Heparin Sodium (Porcine) 5,000 unit 08/26/17 22:00 08/28/17 06:19 Heparin - SQ 5,000 unit TID MAAME Administration Sodium Chloride 1,000 mls @ 83 mls/hr 08/26/17 15:15 08/27/17 17:06 Normal Saline - IV 83 mls/hr ASDIR MAAME Administration Piperacillin Sod/Tazobactam Sod 3.375 gm in 50 mls @ 100 mls/hr 08/27/17 10: 00 08/28/17 09:57 Zosyn 3.375gm Ivpb (Pre-Docked) IVPB 100 mls/hr Q8H-IV MAAME Administration Protocol Morphine Sulfate 1 mg 08/26/17 15:15 Morphine Injection - IVPUSH Q4H PRN PAIN LEVEL 1-5 Ondansetron HCl 4 mg 08/26/17 15:18 Zofran Injection IVPUSH Q6H PRN NAUSEA Sertraline HCl 75 mg 08/27/17 10:00 08/28/17 09:58 Zoloft - PO 75 mg DAILY MAAME Administration ASSESSMENT/PLAN: 26 year-old male with a PMH significant for Crohn's disease and depression, admitted for Crohn's flare with developing abscesses. Crohn's disease exacerbation with peritoneal abscesses --afebrile for 48 hours, leukocytosis resolved --continue Zosyn today --advance diet Depression --continue abilify, Zoloft FEN Fluids: PO intake adequate Electrolytes: replete as indicated Nutrition: full liquids lunch, low fiber for dinner DVT prophylaxis: subq heparin Dispo: --if tolerates diet, and remains afebrile and no leukocytosis, OK to discharge tomorrow on PO ciprofloxacin and PO flagyl; discussed with patient and his father who is MD, patient has appointment on Wednesday morning with his GI doc at [facility]. Full code. Visit type - Emergency Visit Emergency Visit: Yes ED Registration Date: 08/26/17 Care time: The patient presented to the Emergency Department on the above date and was hospitalized for further evaluation of their emergent condition. - New Patient This patient is new to me today: Yes Date on this admission: 08/28/17 - Critical Care Critical Care patient: No
[2017-08-28] MEDS: SODIUM CHLORIDE 1,000 ML IV SCH (15:56)
[2017-08-29] MEDS: PIPERACILLIN/TAZOB 3.375 GM 3.375 GM/50 ML BAG IVPB SCH ×2 (01:39→09:34)
[2017-08-29 06:27] VITALS: BP 117/66; PULSE 74; TEMP 97.6
[2017-08-29] MEDS: HEPARIN NA (PORCINE) 5,000 UNITS/ML 1ML VIAL SQ SCH (06:37)
--- NOTE | 2017-08-29 09:19 | DS ---
Physical Exam: SUBJECTIVE: Patient seen and examined OBJECTIVE: Vital Signs Period Temp Pulse Resp BP Sys/Joiner Pulse Ox Last 24 Hr 97.6 F-97.8 F 71-77 16-20 115-117/66-73 95-98 PHYSICAL EXAM GENERAL: The patient is awake, alert, and fully oriented, in no acute distress. HEAD: Normal with no signs of trauma. EYES: PERRL, extraocular movements intact, sclera anicteric, conjunctiva clear. ENT: Ears normal, nares patent, oropharynx clear without exudates, moist mucous membranes. NECK: Trachea midline, full range of motion, supple. LUNGS: Breath sounds equal, clear to auscultation bilaterally, no wheezes, no crackles, no accessory muscle use. HEART: Regular rate and rhythm, S1, S2 without murmur, rub or gallop. ABDOMEN: Soft, nontender, nondistended, normoactive bowel sounds, no guarding, no rebound, no hepatosplenomegaly, no masses. EXTREMITIES: 2+ pulses, warm, well-perfused, no edema. NEUROLOGICAL: Cranial nerves II through XII grossly intact. Normal speech, gait not observed. PSYCH: Normal mood, normal affect. SKIN: Warm, dry, normal turgor, no rashes or lesions noted. LABS HOSPITAL COURSE: Date of Admission:08/26/17 Date of Discharge: 08/29/17 Minutes to complete discharge: 35 Discharge Summary Reason For Visit: abdominal ABSCESS,CROHNS DISEASE Current Active Problems Abdominal abscess (Acute) Abdominal pain, right lower quadrant (Acute) Abdominal visceral abscess (Acute) Acute Crohn's disease with abscess (Acute) Ileitis, terminal (Acute) Condition: Stable - Instructions Diet, Activity, Other Instructions: Recommend a low residue lactose free diet. Out patient endoscopic evaluation once the acute process resolved. Referrals: Marquis Logan MD [Non Staff, Medical] - ( tomorrow as scheduled) Rhiannon Rosenthal MD [Non Staff, Medical] - 2 Weeks Disposition: HOME - Home Medications Comprehensive Discharge Medication List: Ambulatory Orders Aripiprazole [Abilify -] 2 mg PO DAILY 05/23/12 Sertraline HCl [Zoloft -] 75 mg PO DAILY 05/23/12 Lisdexamfetamine Dimesylate [Vyvanse] 40 mg PO DAILY 04/26/18 Lactobacillus Acidophilus [Acidophilus] 1 each PO BID #20 tablet 08/29/17 levoFLOXacin [Levaquin -] 500 mg PO DAILY #10 tablet 08/29/17 metroNIDAZOLE [Flagyl -] 500 mg PO TID 10 Days #30 tablet 08/29/17 This patient is new to me today: Yes Date on this admission: 08/29/17 Emergency Visit: Yes ED Registration Date: 08/26/17 Care time: The patient presented to the Emergency Department on the above date and was hospitalized for further evaluation of their emergent condition. Critical Care patient: No - Discharge Referral Referred to [facility] Med P.C.: No
[2017-08-29] MEDS: ARIPiprazole 2 MG TABLET PO SCH (09:36)
[2017-08-29] MEDS: SERTRALINE HCL 50 MG TABLET (FP) PO SCH (09:36)
--- NOTE | 2017-08-29 10:34 | PN ---
Progress Note, Physician History of Present Illness: Pt feels well. Denies abd pain. Remains afebrile. - Current Medication List Current Medications: Active Medications Acetaminophen (Ofirmev Injection -) 1,000 mg IVPB Q6H PRN PRN Reason: FEVER Last Admin: 08/28/17 15:30 Dose: 1,000 mg Aripiprazole (Abilify) 2 mg PO DAILY [facility] Last Admin: 08/29/17 09:36 Dose: 2 mg Heparin Sodium (Porcine) (Heparin -) 5,000 unit SQ TID [facility] Last Admin: 08/29/17 06:37 Dose: 5,000 unit Sodium Chloride (Normal Saline -) 1,000 mls @ 83 mls/hr IV ASDIR [facility] Last Admin: 08/28/17 15:56 Dose: 83 mls/hr Piperacillin Sod/Tazobactam Sod (Zosyn 3.375gm Ivpb (Pre-Docked)) 3.375 gm in 50 mls @ 100 mls/hr IVPB Q8H-IV MAAME PRN Reason: Protocol Last Admin: 08/29/17 09:34 Dose: 100 mls/hr Morphine Sulfate (Morphine Injection -) 1 mg IVPUSH Q4H PRN PRN Reason: PAIN LEVEL 1-5 Last Admin: 08/28/17 21:02 Dose: 1 mg Ondansetron HCl (Zofran Injection) 4 mg IVPUSH Q6H PRN PRN Reason: NAUSEA Sertraline HCl (Zoloft -) 75 mg PO DAILY [facility] Last Admin: 08/29/17 09:36 Dose: 75 mg - Objective Vital Signs: Vital Signs Temperature 97.6 F 08/29/17 06:00 Pulse Rate 74 08/29/17 06:00 Respiratory Rate 18 08/29/17 06:00 Blood Pressure 117/66 08/29/17 06:00 O2 Sat by Pulse Oximetry (%) 96 08/29/17 06:00 Constitutional: Yes: No Distress, Calm Cardiovascular: Yes: Regular Rate and Rhythm Respiratory: Yes: Regular Gastrointestinal: Yes: Normal Bowel Sounds, Soft Genitourinary: Yes: WNL Extremities: Yes: WNL Neurological: Yes: Alert, Oriented Labs: CBC, BMP 08/28/17 07:38 08/28/17 07:38 Problem List - Problems (1) Acute Crohn's disease with abscess Code(s): K50.914 - CROHN'S DISEASE, UNSPECIFIED, WITH ABSCESS (2) Ileitis, terminal Code(s): K50.00 - CROHN'S DISEASE OF SMALL INTESTINE WITHOUT COMPLICATIONS Assessment/Plan 26 y.o. male with hx of Crohn's disease presenting with abdominal pain, fever, mild leukocytosis now resolved Terminal ilietis with abscess -clinically improving - agree with levaquin and flagyl po x 10 days - f/u with GI scheduled as outpt
--- NOTE | 2017-08-29 13:51 | DS ---
Physical Exam: SUBJECTIVE: Patient seen and examined. Pt reports feeling better,abdominal pain resolved,reports loose BM x1 this morning, no hematochezia, nausea/ vomiting,diet tolerated well. OBJECTIVE: Vital Signs Period Temp Pulse Resp BP Sys/Joiner Pulse Ox Last 24 Hr 97.6 F-97.7 F 71-74 18-20 117-117/66-71 95-96 PHYSICAL EXAM GENERAL: The patient is awake, alert, and fully oriented, in no acute distress. HEAD: Normal with no signs of trauma. EYES: PERRL, extraocular movements intact, sclera anicteric, conjunctiva clear. ENT: Ears normal, nares patent, oropharynx clear without exudates, moist mucous membranes. NECK: Trachea midline, full range of motion, supple. LUNGS: Breath sounds equal, clear to auscultation bilaterally, no wheezes, no crackles, no accessory muscle use. HEART: Regular rate and rhythm, S1, S2 without murmur, rub or gallop. ABDOMEN: Soft, nontender, nondistended, normoactive bowel sounds, no guarding, no rebound, no hepatosplenomegaly, no masses. EXTREMITIES: 2+ pulses, warm, well-perfused, no edema. NEUROLOGICAL: Cranial nerves II through XII grossly intact. Normal speech, gait not observed. PSYCH: Normal mood, normal affect. SKIN: Warm, dry, normal turgor, no rashes or lesions noted. LABS CBCD WBC 5.3 K/mm3 (4.0-10.8) 08/28/17 07:38 RBC 5.14 M/mm3 (4.00-5.60) 08/28/17 07:38 Hgb 12.2 GM/dl (11.7-16.9) 08/28/17 07:38 Hct 37.2 % (35.4-49) 08/28/17 07:38 MCV 72.5 fl (80-96) L 08/28/17 07:38 MCHC 32.7 g/dl (32.0-35.9) 08/28/17 07:38 RDW 14.2 % (11.9-15.9) 08/28/17 07:38 Plt Count 355 K/MM3 (134-434) 08/28/17 07:38 MPV 8.2 fl (7.5-11.1) 08/28/17 07:38 CMP Sodium 138 mmol/L (136-145) 08/28/17 07:38 Potassium 4.2 mmol/L (3.5-5.1) 08/28/17 07:38 Chloride 100 mmol/L (98-107) 08/28/17 07:38 Carbon Dioxide 30 mmol/L (22-28) H 08/28/17 07:38 Anion Gap 8 (8-16) 08/28/17 07:38 BUN < 6 mg/dl (7-18) L 08/28/17 07:38 Creatinine 0.8 mg/dl (0.6-1.3) 08/28/17 07:38 Creat Clearance w eGFR > 60 (>60) 08/28/17 07:38 Random Glucose 86 mg/dl (74-106) 08/28/17 07:38 Calcium 8.6 mg/dl (8.4-10.2) 08/28/17 07:38 Total Bilirubin 1.0 mg/dl (0.2-1.0) 08/28/17 07:38 AST 9 U/L (10-42) L 08/28/17 07:38 ALT 16 U/L (10-40) 08/28/17 07:38 Alkaline Phosphatase 38 U/L (32-92) 08/28/17 07:38 Total Protein 5.9 g/dl (6.4-8.3) L 08/28/17 07:38 Albumin 2.9 g/dl (3.5-5.0) L 08/28/17 07:38 Microbiology 08/26/17 10:57 Urine - Urine Clean Catch Urine Culture - Final NO GROWTH OBTAINED 08/26/17 14:16 Blood - Peripheral Venous Blood Culture - Preliminary NO GROWTH OBTAINED AFTER 48 HOURS, INCUBATION TO CONTINUE FOR 3 DAYS. 08/26/17 14:16 Blood - Peripheral Venous Blood Culture - Preliminary NO GROWTH OBTAINED AFTER 48 HOURS, INCUBATION TO CONTINUE FOR 3 DAYS. HOSPITAL COURSE: Date of Admission:08/26/17 Date of Discharge: 08/29/17 This is a 26 year-old male with a PMH significant for Crohn's disease and depression, admitted for Crohn's flare with developing abscesses. InEr, found to have low grade fever and mild leukocytosis. CT abdomen/pelvis done showed inflammatory changes of bowel loops with developing abscess. Pt was evaluated by GI, SX and ID during the hospital stay. Pt received Zosyn with improvement, now transitioned to Levaquin and Flagyl, remains afebrile, leukocytosis normalized, ramirez cultures showed no growth. Recommend out pt GI followup as scheduled tomorrow and resume low residue lactose free diet. Minutes to complete discharge: 35 Discharge Summary Reason For Visit: abdominal ABSCESS,CROHNS DISEASE Condition: Stable - Instructions Diet, Activity, Other Instructions: Recommend a low residue lactose free diet. Out patient endoscopic evaluation once the acute process resolved. Referrals: Marquis Logan MD [Non Staff, Medical] - ( tomorrow as scheduled) Rhiannon Rosenthal MD [Non Staff, Medical] - 2 Weeks Disposition: HOME - Home Medications Comprehensive Discharge Medication List: Ambulatory Orders Aripiprazole [Abilify -] 2 mg PO DAILY 05/23/12 Sertraline HCl [Zoloft -] 75 mg PO DAILY 05/23/12 Lisdexamfetamine Dimesylate [Vyvanse] 40 mg PO DAILY 08/26/17 Lactobacillus Acidophilus [Acidophilus] 1 each PO BID #20 tablet 08/29/17 levoFLOXacin [Levaquin -] 500 mg PO DAILY #10 tablet 08/29/17 metroNIDAZOLE [Flagyl -] 500 mg PO TID 10 Days #30 tablet 08/29/17 This patient is new to me today: Yes Date on this admission: 08/29/17 Emergency Visit: Yes ED Registration Date: 08/26/17 Care time: The patient presented to the Emergency Department on the above date and was hospitalized for further evaluation of their emergent condition. Critical Care patient: No - Discharge Referral Referred to [facility] Med P.C.: No
== END 2017-08-29 11:07 | disposition home or self-care (01) | DRG 385 ==
LOC: FER 09:57 → FM/S 20:31
PROVIDERS: ADMIT Hospitalist; ATTEND Nurse Practitioner Family
DX: K50.914 Crohn's disease, unspecified, with abscess (principal); K65.1 Peritoneal abscess; D72.829 Elevated white blood cell count, unspecified; K50.00 Crohn's disease of small intestine without complications; R10.31 Right lower quadrant pain
CPT/HCPCS: 36415; 74177-TC; 80053; 81003; 81015; 83605; 83690; 83735; 84100; 85025; 87040; 87086; 93005; 99285-25; J0131; J1644; J7030